=== PATIENT | male | born 1995 | race Caucasian/White ===

== ENCOUNTER 2021-06-13 15:07 | Emergency (ER) | payer SELFPAY ==
[2021-06-13 15:25] VITALS: BP 121/75; PULSE 80; RESP 16; TEMP 36.9; O2SAT 100
--- NOTE | 2021-06-13 16:17 | ED.GENADULT ---
HPI - General Adult General Chief complaint: Upper Respiratory Infection Stated complaint: difficulty breathing/chest tightness Source: patient Mode of arrival: ambulatory Limitations: no limitations History of Present Illness HPI narrative: Patient is a 25-year-old male who presents [facility] via POV for evaluation of respiratory symptoms that have been present for 2 weeks. Additionally, patient reports chest S, shortness of breath, dry cough, and clear mucus . History significant for asthma. Patient reports today symptoms are similar to previous asthma exacerbations. Inhaler improves symptoms. Babying and walking up steps worsen symptoms. Denies known exposure to sick contacts. Patient reports he is vaccinated against Covid. Related Data Allergies Allergy/AdvReac Type Severity Reaction Status Date / Time No Known Allergies Allergy Verified 06/13/21 15:50 Review of Systems Review of Systems: Denies history of COPD, bronchitis, asthma, and pneumonia. Pertinent negatives: fever, sweats, chills, change in appetite, fatigue, skin color changes, headache, nasal congestion/discharge, dizziness, lymphadenopathy, sinus problems, ear pain/drainage, chest pain, heart murmurs, heart palpitations, sore throat, drooling, wheezing, cyanosis, hemoptysis, hoarseness, orthopnea, pleuritic pain, nausea, vomiting, diarrhea, and myalgias. [facility] Past Medical History Medical History (Updated 06/13/21 @ 16:36 by JACKSON Guido, ) Asthma Social History Social History Smoking status: Never smoker Second hand tobacco smoke exposure: Yes Alcohol intake: never Comments I have reviewed and agree with the patient's past medical, surgical, social, and family hx as documented by the RN. There is no relevant family history pertinent to the presenting complaint. Exam Narrative: GENERAL: Well-appearing, well-nourished, and in no acute distress. HEAD: Normocephalic, atraumatic. No sinus tenderness or facial swelling appreciated. EYES: PERRLA and EOMI. No evidence of erythema, swelling, or drainage. ENT: Bilateral external ears and ear canals normal. Bilateral TMs are normal.No TM perforation. Nares clear, no rhinorrhea or epistaxis. Bilateral turbinates without erythema/ swelling. Mucous membranes moist and pink. Uvula is midline without erythema and swelling. No evidence of petechial rash, cobblestoning, lesions, ulcers, erythema, swelling, exudates, peritonsillar abscess, tenting, or drooling. Breath odor and voice normal. NECK: Supple. No Lymphadenopathy or nuchal rigidity appreciated. CHEST: Bilateral lung barnett are clear to auscultation. No respiratory distress. No evidence of cough or pleuritic cp upon examination. HEART: Regular rate and rhythm. No murmur, gallop, or rub heard. EXTREMITIES: Normal range of motion. No edema. SKIN: Warm, dry, no rash. NEURO: No focal deficits. Alert and oriented x3. Course Vital Signs Vital signs: Vital Signs Temperature 98.4 F 06/13/21 15:25 Pulse Rate 80 06/13/21 15:25 Respiratory Rate 16 06/13/21 15:25 Blood Pressure 121/75 06/13/21 15:25 Pulse Oximetry 100 06/13/21 15:25 Temperature 98.4 F 06/13/21 15:25 Pulse Rate 80 06/13/21 15:25 Respiratory Rate 16 06/13/21 15:25 Blood Pressure 121/75 06/13/21 15:25 Pulse Oximetry 100 06/13/21 15:25 Reviewed. Medical Decision Making Differential Diagnosis Differential Diagnosis: Allergic rhinitis, ABRS, acute viral sinusitis, strep pharyngitis, nasopharyngitis, bronchitis, pneumonia, AOM, otitis externa, viral URI, influenza Medical Records Medical records reviewed: Yes I reviewed the external patient's medical records. Vital Signs Vital Signs: Vital Signs Temperature 98.4 F 06/13/21 15:25 Pulse Rate 80 06/13/21 15:25 Respiratory Rate 16 06/13/21 15:25 Blood Pressure 121/75 06/13/21 15:25 Pulse Oximetry 100
== END 2021-06-13 16:30 | disposition home or self-care (01) ==
PROVIDERS: Emergency Provider Nurse Practitioner Family
DX: J45.909 Unspecified asthma, uncomplicated (principal)
CPT/HCPCS: 99203; G0463

== ENCOUNTER 2022-04-24 10:17 | Outpatient (CLI) | payer SELFPAY ==
[2022-04-24 10:44] LABS: Basophils Percent Auto 0.5 % (0.2-1.2); Eosinophils Absolute Auto 0.2 K/mm3 (0-0.3); Eosinophils Percent Auto 3.7 % (0-4.4); Hematocrit 44.5 % (42.0-52.0); Immature Granulocyte Absolute 0.01 K/mm3 (0.00-0.031); Immature Granulocyte Percent A 0.2 % (0-0.5); Lymphocytes Absolute Auto 1.65 K/mm3 (0.9-3.2); Mean Corpuscular HGB Conc 33.7 g/dl (32-36); Mean Corpuscular Hemoglobin 30.4 pg (26-34); Mean Corpuscular Volume 90.3 fl (80-100); Mean Platelet Volume 10.8 fl (7.4-10.4); Monocytes Absolute Auto 0.4 K/mm3 (0.1-0.6); Monocytes Percent Auto 7.5 % (2.6-8.5); Neutrophils Absolute Auto 3.6 K/mm3 (1.3-6.7); Neutrophils Percent Auto 60.1 % (45.5-73.1); Platelet Count Result 184 k/mm3 (150-375); Red Blood Count 4.93 M/mm3 (4.6-6.20); Red Cell Distribution Width 11.9 % (11.5-14.5); White Blood Count 5.9 K/mm3 (4.5-10.0)
[2022-04-24 10:53] LABS: Alanine Aminotransferase 23 U/L (6-50); Albumin Level 4.7 g/dL (3.5-5.1); Alkaline Phosphatase 96 U/L (38-126); Anion Gap 8 mmol/L (8-16); Aspartate Amino Transferase 25 U/L (17-59); Bilirubin,Total 0.8 mg/dL (0.2-1.3); Blood Urea Nitrogen 15 mg/dL (9-20); Calcium 9.1 mg/dL (8.4-10.2); Carbon Dioxide 27 mmol/L (22-30); Chloride 105 mmol/L (98-107); Cholesterol 142 mg/dL (0-200); Estimated Glomerular Filt Rate > 60; Glucose 94 mg/dL (65-110); HDL Direct 42 mg/dL; Potassium 4.2 mmol/L (3.4-5.0); Sodium 140 mmol/L (137-145); Triglycerides 66 mg/dL (<150)
[2022-04-24 11:05] LABS: LDL Cholesterol Direct 75 mg/dL
[2022-04-24 11:25] LABS: Thyroid Stimulating Hormone 0.591 uIU/mL (0.465-4.680)
== END 2022-04-24 10:18 | disposition home or self-care (01) ==
LOC: ANHLAB 10:19
PROVIDERS: PCP Physician Assistant; Visit Provider Physician Assistant
DX: Z00.00 Encounter for general adult medical examination without abnormal findings (principal)
CPT/HCPCS: 36415; 80053; 80061; 84443; 85025

== ENCOUNTER 2022-05-26 10:36 | Outpatient (CLI) | payer OTHER, SELFPAY ==
--- NOTE | 2022-05-26 10:39 | ECHO_ITS ---
Patient Info Name: Erasto Flores Age: 26 years : 1995 Gender: Male Ht: 72 in Wt: 140 lbs BSA: 1.78 m2 HR: 89 bpm BP: 111 / 88 mmHg Technical Quality: Good Exam Date: 05/26/2022 11:15 AM Exam Location: [facility] Patient Status: Outpatient Admit Date: 05/26/2022 Staff Ordering Physician: Frde Oliveira PA-C [employer] Administrator: Carlos Porter RDCS, RT Attending Provider: Fred Oliveira PA-C Referring Physician: Roxanne DUFFY; Exam Type: CA echo doppler color flow Study Info Indications R07.9 - Chest pain, unspecified Complete two-dimensional, color flow and Doppler transthoracic echocardiogram is performed. Strain analysis performed. Summary 1. Complete two-dimensional, color flow and Doppler transthoracic echocardiogram is performed. 2. Left ventricular chamber dimension is normal. 3. Left ventricular systolic function is normal, estimated at 60-65%. 4. The left ventricular diastolic function is normal. 5. E/e' 5 is not elevated. 6. Global longitudinal strain is abnormal at -13.8%. Left Ventricle E/e' 5 is not elevated. Global longitudinal strain is abnormal at -13.8%. Left ventricular chamber dimension is normal. Left ventricular systolic function is normal, estimated at 60-65%. The left ventricular diastolic function is normal. Right Ventricle Right ventricular systolic function is normal and with normal TAPSE 2.0 cm. Right ventricular chamber dimension is normal. Left Atria Left atrial chamber dimension is normal. Right Atria Right atrial chamber dimension is normal. Aortic Valve The aortic valve is not well visualized. Cannot determine number of aortic valve leaflets. There is no aortic valve stenosis. There is no aortic valve regurgitation. Pulmonic Valve There is no pulmonic regurgitation. Mitral Valve There is no mitral valve stenosis. There is no mitral valve regurgitation. Tricuspid Valve There is no tricuspid valve regurgitation. Pericardium/Pleural There is no pericardial effusion. Inferior Vena Cava Normal inferior vena cava with >50% collapse upon inspiration consistent with normal right atrial pressure, 5 mmHg. Aorta The aortic root size at the sinus of Valsalva is normal. Left Ventricular Outflow Tract Name Value Normal LVOT 2D LVOT Diameter 2.0 cm LVOT Doppler LVOT Peak Gradient 4 mmHg LVOT Mean Gradient 2 mmHg LVOT VTI 17 cm LVOT VTI/AV VTI Ratio 1.0 LVOT Stroke Volume 51 ml LVOT CO 4.9 l/min LVOT CI 2.7 l/min/m2 Mitral Valve Name Value Normal MV Doppler MV Decel [place] 640 cm/s2 MV PHT 34 ms
--- NOTE | 2022-05-30 12:07 | WPDHOLTEREM ---
Holter/Event Monitor Holter/Event Monitor Date of procedure: 05/26/22 Holter/Event Procedure: 24 Hr Holter Monitor Indications: Palpitations Conclusion: 1. 24 hour holter monitor on 05/26/22. 2. Underlying rhythm is sinus rhythm. HR range 55-146 bpm; average HR 96 bpm. 3. There is 1 premature supraventricular complex. No supraventricular tachycardia. 4. There are 24 premature ventricular complexes. No ventricular tachycardia. 5. No sinoatrial or atrioventricular blocks. No significant pauses greater than 2 seconds. 6. Patient reports symptoms of fast heart beat which demonstrate sinus rhythm, HR range 97-130 bpm.
== END 2022-05-26 10:37 | disposition home or self-care (01) ==
LOC: ANHCARD 10:37
PROVIDERS: PCP Physician Assistant; Visit Provider Physician Assistant
DX: R07.9 Chest pain, unspecified (principal)
CPT/HCPCS: 93225; 93226; 93306

== ENCOUNTER 2022-11-15 15:32 | Emergency (ER) | payer OTHER, SELFPAY ==
--- NOTE | ~2022-11-15 | XR_ITS ---
EXAMINATION: XR chest 2V DATE: 11/15/2022 16:02 INDICATION: Tachycardia. Left chest pain. TECHNIQUE: Frontal and lateral views of the chest were obtained. COMPARISON: None. FINDINGS: There is mild scarring at the lung apices. No pleural effusion or pneumothorax. The heart s ize is normal. IMPRESSION: 1. Mild scarring at the lung apices. Reviewed, dictated and finalized at location A. 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
--- NOTE | 2022-11-15 15:33 | ECG_ITS ---
Measurements Intervals [place] Rate: 89 P: 78 PA: 129 QRS: 93 QRSD: 93 T: 65 QT: 318 QTc: 389 Interpretive Statements SINUS ARRHYTHMIA WITH OCCASIONAL SUPRAVENTRICULAR PREMATURE COMPLEXES BORDERLINE RIGHT AXIS DEVIATION [QRS AXIS > 90] ABNORMAL ECG NO PREVIOUS ECG AVAILABLE FOR COMPARISON Electronically Signed On 11-16-2022 10:02:12 [employer] by Harrison Castorena M.D.
[2022-11-15 15:42] VITALS: BP 114/75; PULSE 98; RESP 18; TEMP 36.8; O2SAT 98
[2022-11-15 15:53] LABS: Basophils Percent Auto 0.7 % (0.2-1.2); Eosinophils Absolute Auto 0.3 K/mm3 (0-0.3); Eosinophils Percent Auto 4.8 % (0-4.4); Hematocrit 47.3 % (42.0-52.0); Hemoglobin 15.8 g/dL (14.0-18.0); Immature Granulocyte Absolute 0.01 K/mm3 (0.00-0.031); Immature Granulocyte Percent A 0.2 % (0-0.5); Lymphocytes Absolute Auto 1.98 K/mm3 (0.9-3.2); Lymphocytes Percent Auto 34.1 % (18.3-44.2); Mean Corpuscular HGB Conc 33.4 g/dl (32-36); Mean Corpuscular Hemoglobin 30.3 pg (26-34); Mean Corpuscular Volume 90.8 fl (80-100); Monocytes Absolute Auto 0.4 K/mm3 (0.1-0.6); Monocytes Percent Auto 7.4 % (2.6-8.5); Neutrophils Absolute Auto 3.1 K/mm3 (1.3-6.7); Neutrophils Percent Auto 52.8 % (45.5-73.1); Platelet Count Result 208 k/mm3 (150-375); Red Blood Count 5.21 M/mm3 (4.6-6.20); Red Cell Distribution Width 11.8 % (11.5-14.5); White Blood Count 5.8 K/mm3 (4.5-10.0)
[2022-11-15 16:05] LABS: INR 1.1; Prothrombin Time 13.5 Seconds (11.1-14.7)
[2022-11-15 16:06] LABS: Partial Thromboplastin Time 30.6 SECONDS (22.3-36.8)
[2022-11-15 16:08] LABS: Alanine Aminotransferase 19 U/L (6-50); Albumin Level 4.7 g/dL (3.5-5.1); Alkaline Phosphatase 89 U/L (38-126); Anion Gap 6 mmol/L (8-16); Aspartate Amino Transferase 27 U/L (17-59); Bilirubin,Total 0.8 mg/dL (0.2-1.3); Blood Urea Nitrogen 12 mg/dL (9-20); Calcium 9.2 mg/dL (8.4-10.2); Carbon Dioxide 32 mmol/L (22-30); Chloride 101 mmol/L (98-107); Estimated CRCL calculation 95 ml/min; Estimated Glomerular Filt Rate > 60; Glucose 62 mg/dL (65-110); Lipase 64 U/L (23-300); Potassium 4.1 mmol/L (3.4-5.0); Sodium 139 mmol/L (137-145)
[2022-11-15 16:20] LABS: Troponin I < 0.012 ng/mL (0.000-0.034)
--- NOTE | 2022-11-15 17:25 | PC.NURSE ---
EDP at bedside to assess pt.
--- NOTE | 2022-11-15 17:31 | ED.CHESTPAIN ---
HPI - Chest Pain General Chief Complaint: Chest Pain Stated Complaint: SOB, chest tightness Time Seen by Provider: 11/15/22 16:55 Source: patient Mode of arrival: ambulatory Limitations: no limitations History of Present Illness HPI narrative: Patient is a 26-year-old male, with PMHx of anxiety, who presents the ED with report of chest pain and shortness of breath. Patient reports having intermittent midsternal chest pain for the last 6 days. He states that the pain occurs randomly, lasts for a few seconds at a time, and is described as sharp. Denies aggravating or alleviating factors, specifically denies exacerbation with exertion. He has not tried anything for the pain. Denies feeling SOB with the pain, but states he has had shortness of breath over the last few days. He has a history of asthma and has been using his inhalers at home with little relief. He does note wheezing. Denies cough, cold symptoms, fever, nausea, vomiting, abdominal pain. Related Data Allergies Allergy/AdvReac Type Severity Reaction Status Date / Time No Known Allergies Allergy Verified 07/18/22 15:16 Review of Systems Review of Systems: CONSTITUTIONAL: Denies fever, chills, or sweats. ENT: Denies rhinorrhea, congestion, sore throat, or otalgia. CARDIOVASCULAR: See HPI. RESPIRATORY: See HPI. GASTROINTESTINAL: Denies abdominal pain, nausea, vomiting, or diarrhea. All systems reviewed & are unremarkable except as noted in HPI and below PMFSH Past Medical History Medical History Allergies Anxiety Asthma Asthma Surgical History Surgical History No pertinent past surgical history Family History Family History Father Alcoholism Asthma Hypertension Heart disease Depression Mother Asthma Hypertension Depression Social History Social History Smoking status: Never smoker Tobacco type: e-cigarettes/vaping Second hand tobacco smoke exposure: Yes Alcohol intake: never Substance use: unknown Exam Narrative: GENERAL: Well appearing, thin, non-toxic, in no acute distress. HEAD: Normocephalic, atraumatic. NECK: Supple. No adenopathy, no masses. RESPIRATORY: Airway patent, respirations nonlabored. Occasional expiratory wheezing, otherwise clear to auscultation bilaterally. CARDIOVASCULAR: Regular rate and rhythm without murmurs, rubs, or gallops. Peripheral pulses 2+ and equal bilaterally. ABDOMINAL: Soft, nontender, nondistended, no hepatosplenomegaly. Normoactive BS. MUSCULOSKELETAL: Moves all extremities. Strength/ROM intact without gross deformities. SKIN: Warm, dry, normal color. No rashes. NEURO: A&O X3. Speech clear. Cranial nerves II-XII grossly intact. Steady gait. No ataxic movements. PSYCHIATRIC: Flat affect, mildly anxious. Normal interaction. Course Vital Signs Vital signs: Vital Signs Temperature 98.2 F 11/15/22 15:42 Pulse Rate 98 11/15/22 15:42 Respiratory Rate 18 11/15/22 15:42 Blood Pressure 114/75 11/15/22 15:42 Pulse Oximetry 98 11/15/22 15:42 Oxygen Delivery Room Air 11/15/22 15:42 Temperature 98.2 F 11/15/22 15:42 Pulse Rate 82 11/15/22 18:49 Respiratory Rate 13 11/15/22 18:49 Blood Pressure 113/87 11/15/22 18:49 Pulse Oximetry 100 11/15/22 18:49 Oxygen Delivery Room Air 11/15/22 17:19 MDM - Chest Pain MDM Narrative Medical decision making narrative: Patient's EKGs and labs are without significant high risk changes. EKG w/o acute ischemic changes. Troponin negative. Due to patient having pain for the last several days, delta Trop not obtained. Cardiac risk factors reviewed. HEART score = 0. Patient is felt likely low risk for ACS and reasonable for further risk stratification testing as an outpatient. Pain wa
[2022-11-15] MEDS: IPRATROPIUM BR 0.02% INH SOLN 0.5 MG/2.5 ML VIAL INHALATION (17:41)
[2022-11-15 17:42] VITALS: PULSE 80; RESP 18
[2022-11-15 17:49] VITALS: PULSE 78; RESP 18
--- NOTE | 2022-11-15 17:50 | PC.NURSE ---
RT at bedside to administer breathing treatment.
[2022-11-15 17:56] LABS: D Dimer 0.31 ug/mL (<0.48)
[2022-11-15 18:49] VITALS: BP 113/87; PULSE 82; RESP 13; O2SAT 100
== END 2022-11-15 18:55 | disposition home or self-care (01) ==
LOC: ANHED 18:34
PROVIDERS: Emergency Medicine; Emergency Provider Physician Assistant; PCP Physician Assistant
DX: R07.89 Other chest pain (principal); R06.00 Dyspnea, unspecified; J45.909 Unspecified asthma, uncomplicated
CPT/HCPCS: 36415; 71046; 80053; 83690; 84484; 85025; 85380; 85610; 85730; 93005; 94640; 99284